=== PATIENT | female | born 1955 | race African-American/Black ===

== ENCOUNTER 2017-10-02 07:53 | Inpatient (IN) | payer OTHER, MEDICAID ==
[~2017-10-02] VITALS: Ht 157.5 cm; Wt 60.7 kg
[2017-10-02 08:30] LABS: Basophils # (auto) 0.1 uL; Basophils % (auto) 1.1 % (0.0-2.0); Eosinophils # (auto) 0.1 uL; Eosinophils % (auto) 0.7 % (0.0-7.0); Hematocrit 41.8 % (36.0-46.0); Hemoglobin 13.9 g/dL (12.2-16.2); Lymphocytes % (auto) 16.3 % (10.0-50.0); Mean Corpuscular Hemoglobin 29.8 pg (28.0-32.0); Mean Corpuscular Hgb Conc. 33.2 g/dL (32.0-36.0); Mean Corpuscular Volume 89.7 fL (80.0-100.0); Monocytes # (auto) 0.8 uL; Monocytes % (auto) 6.8 % (0.0-12.0); Neutrophils % (auto) 75.1 % (37.0-80.0); Platelet Count (auto) 340 10^3/uL (140-450); Red Blood Cells 4.66 10^6/uL (4.0-5.20); Red Cell Distribution Width 15.3 % (11.8-14.3)
[2017-10-02 08:35] LABS: Urine Bacteria FEW /hpf (None Seen); Urine Blood Negative /uL (Negative); Urine Specific Gravity 1.018 (1.001-1.035); Urine WBC 1 /hpf (0 - 5)
[2017-10-02 08:45] LABS: Albumin 3.9 g/dL (3.4-5.0); Anion Gap 9 (5-15); Blood Urea Nitrogen 13 mg/dL (7-18); Calcium 9.5 mg/dL (8.5-10.1); Carbon Dioxide 22 mmol/L (21-32); Chloride 107 mmol/L (98-107); Glucose 208 mg/dL (74-106); Potassium 4.5 mmol/L (3.5-5.1); Sodium 138 mmol/L (136-145)
[2017-10-02 08:47] LABS: Alanine Aminotransferase 25 U/L (13-56); Aspartate Aminotransferase 12 U/L (15-37); BUN/Creatinine Ratio 12.6; GFR African American 69 mL/min; GFR Non-African American 57 mL/min
[2017-10-02 08:51] LABS: Alkaline Phosphatase 65 U/L (45-117); Bilirubin, Total 0.7 mg/dL (0.2-1.0); Total Protein 7.5 g/dL (6.4-8.2)
[2017-10-02] MEDS ORDERED: SODIUM CHLORIDE 0.9% 1,000 ML IV ONE (08:55)
[2017-10-02] MEDS ORDERED: METOCLOPRAMIDE HCL 5MG/ml INJ 2ml VIAL IV ONE (09:00)
[2017-10-02] MEDS ORDERED: KETOROLAC TROMETH 30 MG/ML 1ML VIAL IV ONE (09:00)
[2017-10-02] MEDS ORDERED: GABA300C10 PO (09:07)
[2017-10-02] MEDS ORDERED: METF-370 PO (09:08)
[2017-10-02] MEDS ORDERED: CARV6.2551 PO (09:08)
[2017-10-02 10:24] LABS: Magnesium 1.6 mg/dL (1.6-2.6)
[2017-10-02] MEDS ORDERED: cefTRIAXone 1GM/10ml IVPUSH 10 ML IV ONE ×2 (11:30→11:45)
[2017-10-02] MEDS ORDERED: metroNIDAZOLE 500MG/100ML 100 ML IV ONE (11:30)
[2017-10-02] MEDS: SODIUM CHLORIDE 0.9% 1,000 ML IV SCH ×2 (11:40→21:40)
[2017-10-02] MEDS ORDERED: PROMETHAZINE HCL 25 MG/ML 1ML IV PRN (11:45)
[2017-10-02] MEDS ORDERED: DEXTROSE (50%) 50ML SYRG IV PRN (11:45)
[2017-10-02] MEDS ORDERED: ACETAMINOPHEN 500 MG TAB PO PRN (11:45)
[2017-10-02] MEDS ORDERED: NITROGLYCERIN 0.4 MG SL TAB SL PRN (11:45)
[2017-10-02] MEDS ORDERED: MORPHINE SULF INJ 2 MG/ML SYRINGE 1ML IV PRN ×2 (11:45)
[2017-10-02] MEDS ORDERED: LORazepam 0.5 MG TAB PO PRN (11:45)
[2017-10-02] MEDS ORDERED: HYDROcodone-ACET 5/325MG TAB PO PRN (11:45)
[2017-10-02] MEDS: CARVEDILOL 12.5 MG TAB PO SCH ×2 (12:31→21:33)
[2017-10-02] MEDS: ACCU-CHEK COMFORT CURVE STRIP VI SCH ×2 (16:28→21:20)
[2017-10-02 17:00] VITALS: BP 133/71
[2017-10-02] MEDS: InsuLIN REG 1unit/0.01ml Soln (100units/ml) SC SCH ×2 (17:00→21:20)
[2017-10-02] MEDS: metroNIDAZOLE 500MG/100ML 100 ML IV SCH ×2 (17:39→23:32)
[2017-10-02] MEDS: GABAPENTIN 300 MG CAP PO SCH (21:33)
[2017-10-02 22:00] VITALS: BP 141/68
[2017-10-02] MEDS: TEMAZEPAM 15 MG CAP PO PRN (22:58)
[2017-10-03] MEDS: SODIUM CHLORIDE 0.9% 1,000 ML IV SCH ×3 (03:40→22:00)
[2017-10-03 05:00] VITALS: BP 122/54
[2017-10-03] MEDS: metroNIDAZOLE 500MG/100ML 100 ML IV SCH ×4 (05:47→23:55)
[2017-10-03] MEDS: ACCU-CHEK COMFORT CURVE STRIP VI SCH ×4 (06:11→21:51)
[2017-10-03] MEDS: InsuLIN REG 1unit/0.01ml Soln (100units/ml) SC SCH ×4 (06:12→21:51)
[2017-10-03 07:50] LABS: Basophils # (auto) 0 uL; Basophils % (auto) 0.2 % (0.0-2.0); Eosinophils # (auto) 0.1 uL; Eosinophils % (auto) 2.1 % (0.0-7.0); Hematocrit 33.9 % (36.0-46.0); Hemoglobin 11.2 g/dL (12.2-16.2); Lymphocytes # (auto) 1.3 uL; Lymphocytes % (auto) 18.3 % (10.0-50.0); Mean Corpuscular Hemoglobin 29.5 pg (28.0-32.0); Mean Corpuscular Volume 89.4 fL (80.0-100.0); Monocytes # (auto) 0.5 uL; Monocytes % (auto) 7.5 % (0.0-12.0); Neutrophils % (auto) 71.9 % (37.0-80.0); Platelet Count (auto) 265 10^3/uL (140-450); Red Blood Cells 3.79 10^6/uL (4.0-5.20); Red Cell Distribution Width 14.7 % (11.8-14.3); White Blood Cell 6.9 10^3/uL (4.4-10.8)
[2017-10-03 09:00] VITALS: BP 118/66
[2017-10-03] MEDS: cefTRIAXone 1GM/10ml IVPUSH 10 ML IV SCH (09:53)
[2017-10-03] MEDS: PANTOPRAZOLE 40 MG TAB PO SCH (09:54)
[2017-10-03] MEDS: CARVEDILOL 12.5 MG TAB PO SCH ×2 (09:54→21:41)
[2017-10-03] MEDS: GABAPENTIN 300 MG CAP PO SCH ×2 (09:55→21:41)
[2017-10-03 13:00] VITALS: BP 125/64
[2017-10-03 17:00] VITALS: BP 149/78
[2017-10-03 22:00] VITALS: BP 144/76
[2017-10-04 05:00] VITALS: BP 138/75
[2017-10-04] MEDS: metroNIDAZOLE 500MG/100ML 100 ML IV SCH ×3 (05:28→17:37)
[2017-10-04] MEDS: InsuLIN REG 1unit/0.01ml Soln (100units/ml) SC SCH ×4 (06:15→22:06)
[2017-10-04] MEDS: ACCU-CHEK COMFORT CURVE STRIP VI SCH ×4 (06:15→22:05)
[2017-10-04 08:00] VITALS: BP 136/65
[2017-10-04 08:53] VITALS: BP 135/72
[2017-10-04] MEDS: cefTRIAXone 1GM/10ml IVPUSH 10 ML IV SCH (09:02)
[2017-10-04] MEDS: PANTOPRAZOLE 40 MG TAB PO SCH (09:02)
[2017-10-04] MEDS: CARVEDILOL 12.5 MG TAB PO SCH ×2 (09:02→22:01)
[2017-10-04] MEDS: GABAPENTIN 300 MG CAP PO SCH ×2 (09:02→22:01)
[2017-10-04] MEDS: SODIUM CHLORIDE 0.9% 1,000 ML IV SCH (12:18)
[2017-10-04 12:37] VITALS: BP 146/76
[2017-10-04 16:57] VITALS: BP 122/59
[2017-10-04 22:07] VITALS: BP 151/83
[2017-10-04] MEDS: TEMAZEPAM 15 MG CAP PO PRN (22:55)
[2017-10-05] MEDS: SODIUM CHLORIDE 0.9% 1,000 ML IV SCH (00:03)
[2017-10-05] MEDS: metroNIDAZOLE 500MG/100ML 100 ML IV SCH ×2 (00:03→05:28)
[2017-10-05 05:33] VITALS: BP 157/66
[2017-10-05] MEDS: ACCU-CHEK COMFORT CURVE STRIP VI SCH ×2 (06:24→11:30)
[2017-10-05] MEDS: InsuLIN REG 1unit/0.01ml Soln (100units/ml) SC SCH ×2 (06:25→11:30)
[2017-10-05 06:30] LABS: BUN/Creatinine Ratio 9.4; Calcium 8.9 mg/dL (8.5-10.1); Potassium 4.5 mmol/L (3.5-5.1)
[2017-10-05 08:00] VITALS: BP 136/60
[2017-10-05 09:00] VITALS: BP 142/74
[2017-10-05] MEDS: cefTRIAXone 1GM/10ml IVPUSH 10 ML IV SCH (09:14)
[2017-10-05] MEDS: PANTOPRAZOLE 40 MG TAB PO SCH (09:14)
[2017-10-05] MEDS: GABAPENTIN 300 MG CAP PO SCH (09:16)
[2017-10-05] MEDS: CARVEDILOL 12.5 MG TAB PO SCH (09:16)
[2017-10-05 11:35] VITALS: BP 142/74
== END 2017-10-05 12:00 | disposition home or self-care (01) | DRG 872 ==
LOC: ER 07:53 → TELE 07:54 → TELE-EAST 13:17
PROVIDERS: ADMIT Internal Medicine; ATTEND Internal Medicine
DX: A41.9 Sepsis, unspecified organism (principal); K57.32 Diverticulitis of large intestine without perforation or abscess without bleeding; E11.42 Type 2 diabetes mellitus with diabetic polyneuropathy; E78.5 Hyperlipidemia, unspecified; F17.210 Nicotine dependence, cigarettes, uncomplicated; I10 Essential (primary) hypertension; K21.9 Gastro-esophageal reflux disease without esophagitis; M06.9 Rheumatoid arthritis, unspecified; M19.90 Unspecified osteoarthritis, unspecified site; K57.90 Diverticulosis of intestine, part unspecified, without perforation or abscess without bleeding; E66.9 Obesity, unspecified; Z68.24 Body mass index [BMI] 24.0-24.9, adult; Z88.5 Allergy status to narcotic agent; Z87.442 Personal history of urinary calculi
CPT/HCPCS: 36415; 74176; 80048; 80053; 81001; 82962; 83036; 83690; 83735; 84484; 85025; 93005; 94761; 96361; 96365; 96375; J0696; J1815; J1885; J3490

== ENCOUNTER 2018-05-01 09:40 | Emergency (ER) | payer OTHER, MEDICAID ==
[~2018-05-01] VITALS: Ht 157.5 cm; Wt 81.6 kg
[~2018-05-01 09:40] MED LIST: CARV6.2551 PO; GABA300C10 PO; METF-370 PO
[2018-05-01 10:54] VITALS: BP 156/82
== END 2018-05-01 12:13 | disposition home or self-care (01) ==
LOC: ER 09:40
DX: J02.9 Acute pharyngitis, unspecified (principal); R05 Cough; J44.9 Chronic obstructive pulmonary disease, unspecified; E11.9 Type 2 diabetes mellitus without complications; K21.9 Gastro-esophageal reflux disease without esophagitis; E78.5 Hyperlipidemia, unspecified; I10 Essential (primary) hypertension; F17.210 Nicotine dependence, cigarettes, uncomplicated; Z90.49 Acquired absence of other specified parts of digestive tract

== ENCOUNTER 2018-05-21 13:53 | Emergency (ER) | payer OTHER, MEDICAID ==
[~2018-05-21] VITALS: Ht 157.5 cm; Wt 81.6 kg
[2018-05-21 14:02] VITALS: BP 149/67
[2018-05-21] MEDS ORDERED: KETOROLAC TROMETH 60MG/2ML VIAL IM ONE (14:45)
== END 2018-05-21 15:07 | disposition home or self-care (01) ==
LOC: ER 13:57
DX: S29.011A Strain of muscle and tendon of front wall of thorax, initial encounter (principal); M19.90 Unspecified osteoarthritis, unspecified site; J44.9 Chronic obstructive pulmonary disease, unspecified; E11.9 Type 2 diabetes mellitus without complications; K21.9 Gastro-esophageal reflux disease without esophagitis; E78.5 Hyperlipidemia, unspecified; I10 Essential (primary) hypertension; F17.210 Nicotine dependence, cigarettes, uncomplicated; Z88.5 Allergy status to narcotic agent; Z79.84 Long term (current) use of oral hypoglycemic drugs; Z79.899 Other long term (current) drug therapy; Z90.49 Acquired absence of other specified parts of digestive tract; W18.39XA Other fall on same level, initial encounter; Y93.89 Activity, other specified; Y99.8 Other external cause status; Y92.096 Garden or yard of other non-institutional residence as the place of occurrence of the external cause
CPT/HCPCS: 71101; 96372; 99283; J1885

== ENCOUNTER 2019-03-29 10:33 | Emergency (ER) | payer OTHER, MEDICAID ==
[~2019-03-29] VITALS: Ht 157.5 cm; Wt 78.5 kg
[2019-03-29 11:12] LABS: Basophils # (auto) 0 uL; Basophils % (auto) 0.3 % (0.0-2.0); Eosinophils # (auto) 0.1 uL; Eosinophils % (auto) 1.2 % (0.0-7.0); Hematocrit 39.4 % (36.0-46.0); Hemoglobin 12.9 g/dL (12.2-16.2); Lymphocytes # (auto) 1.6 uL; Lymphocytes % (auto) 18.2 % (10.0-50.0); Mean Corpuscular Hemoglobin 29.8 pg (28.0-32.0); Mean Corpuscular Hgb Conc. 32.8 g/dL (32.0-36.0); Mean Corpuscular Volume 90.9 fL (80.0-100.0); Monocytes # (auto) 0.7 uL; Monocytes % (auto) 7.6 % (0.0-12.0); Neutrophils # (auto) 6.5 uL; Neutrophils % (auto) 72.7 % (37.0-80.0); Platelet Count (auto) 288 10^3/uL (140-450); Red Blood Cells 4.33 10^6/uL (4.0-5.20); White Blood Cell 8.9 10^3/uL (4.4-10.8)
[2019-03-29 11:27] LABS: Albumin 3.9 g/dL (3.4-5.0); Potassium 4.5 mmol/L (3.5-5.1)
[2019-03-29 11:31] LABS: BUN/Creatinine Ratio 13.9; Bilirubin, Total 0.3 mg/dL (0.2-1.0); Total Protein 7.3 g/dL (6.4-8.2)
[2019-03-29 17:05] VITALS: BP 150/91
== END 2019-03-29 17:12 | disposition home or self-care (01) ==
LOC: ER 10:33
DX: N39.0 Urinary tract infection, site not specified (principal); J44.9 Chronic obstructive pulmonary disease, unspecified; E11.9 Type 2 diabetes mellitus without complications; K21.9 Gastro-esophageal reflux disease without esophagitis; E78.5 Hyperlipidemia, unspecified; I10 Essential (primary) hypertension; F17.210 Nicotine dependence, cigarettes, uncomplicated; Z90.49 Acquired absence of other specified parts of digestive tract; Z88.0 Allergy status to penicillin; Z88.6 Allergy status to analgesic agent
CPT/HCPCS: 36415; 80053; 81002; 85025; 93005

== ENCOUNTER 2019-08-22 09:43 | Emergency (ER) | payer OTHER, MEDICAID ==
[~2019-08-22] VITALS: Ht 157.5 cm; Wt 86.2 kg
[2019-08-22] MEDS ORDERED: SODIUM CHLORIDE 0.9% 1,000 ML IV ONE ×2 (09:52)
[2019-08-22 10:10] LABS: Basophils # (auto) 0 10 ^3/uL (0-0.2); Basophils % (auto) 0.5 % (0.0-2.0); Eosinophils # (auto) 0.4 10 ^3/uL (0-0.8); Eosinophils % (auto) 5.6 % (0.0-7.0); Hematocrit 39.7 % (36.0-46.0); Lymphocytes # (auto) 2.2 10 ^3/uL (0.4-5.4); Lymphocytes % (auto) 34.8 % (10.0-50.0); Mean Corpuscular Hemoglobin 29.3 pg (28.0-32.0); Mean Corpuscular Hgb Conc. 32.7 g/dL (32.0-36.0); Mean Corpuscular Volume 89.6 fL (80.0-100.0); Monocytes # (auto) 0.5 10 ^3/uL (0-1.3); Monocytes % (auto) 7.5 % (0.0-12.0); Neutrophils # (auto) 3.3 10 ^3/uL (1.6-8.6); Neutrophils % (auto) 51.6 % (37.0-80.0); Platelet Count (auto) 312 10^3/uL (140-450); Red Blood Cells 4.43 10^6/uL (4.0-5.20); Red Cell Distribution Width 14.5 % (11.8-14.3); White Blood Cell 6.4 10^3/uL (4.4-10.8)
[2019-08-22 10:27] LABS: Albumin 3.9 g/dL (3.4-5.0); Anion Gap 4 (5-15); Blood Urea Nitrogen 20 mg/dL (7-18); Carbon Dioxide 23 mmol/L (21-32); Chloride 113 mmol/L (98-107); Glucose 132 mg/dL (74-106); Potassium 4.5 mmol/L (3.5-5.1); Sodium 140 mmol/L (136-145)
[2019-08-22 10:33] LABS: Alanine Aminotransferase 31 U/L (13-56); Alkaline Phosphatase 51 U/L (45-117); Aspartate Aminotransferase 19 U/L (15-37); BUN/Creatinine Ratio 20.4; Bilirubin, Total 0.2 mg/dL (0.2-1.0); GFR African American 73 mL/min; GFR Non-African American 60 mL/min; Total Protein 7.2 g/dL (6.4-8.2)
[2019-08-22 10:36] VITALS: BP 169/58
[2019-08-22 10:45] LABS: Urine Bacteria FEW /hpf (None Seen); Urine Blood Negative /uL (Negative); Urine Specific Gravity 1.018 (1.001-1.035); Urine WBC <1 /hpf (0 - 5)
== END 2019-08-22 11:50 | disposition home or self-care (01) ==
LOC: ER 09:43
DX: M54.9 Dorsalgia, unspecified (principal); I10 Essential (primary) hypertension; E86.0 Dehydration; M19.90 Unspecified osteoarthritis, unspecified site; J44.9 Chronic obstructive pulmonary disease, unspecified; E11.9 Type 2 diabetes mellitus without complications; E78.5 Hyperlipidemia, unspecified; F17.210 Nicotine dependence, cigarettes, uncomplicated; Z87.442 Personal history of urinary calculi; Z90.49 Acquired absence of other specified parts of digestive tract; Z90.89 Acquired absence of other organs; Z79.899 Other long term (current) drug therapy; Z88.0 Allergy status to penicillin; Z88.5 Allergy status to narcotic agent
CPT/HCPCS: 36415; 71046; 80053; 81001; 83880; 84484; 85025

== ENCOUNTER → 2021-08-26 | Outpatient (CLI) | payer OTHER, MEDICAID ==
[~2021-08-26] VITALS: Ht 157.5 cm; Wt 86.2 kg
[~2021-08-26] MED LIST changes: +ADENOSINE 72 MG in GIVE UN-DILUTED 0 ML IV ONE; +ADENOSINE 90 MG/30 ML INJ IV ONE
== END | disposition home or self-care (01) ==
LOC: Rad HDHVI 08:12
PROVIDERS: ATTEND Internal Medicine Cardiovascular Disease
DX: I25.2 Old myocardial infarction (principal); I11.0 Hypertensive heart disease with heart failure; I50.33 Acute on chronic diastolic (congestive) heart failure; E11.9 Type 2 diabetes mellitus without complications; E78.5 Hyperlipidemia, unspecified
CPT/HCPCS: 78452; 93005; 96374; 96375; A9500; J0153

== ENCOUNTER → 2021-09-03 | Outpatient (CLI) | payer OTHER, MEDICAID ==
[~2021-09-03] MED LIST changes: -ADENOSINE 72 MG in GIVE UN-DILUTED 0 ML IV ONE; -ADENOSINE 90 MG/30 ML INJ IV ONE
== END | disposition home or self-care (01) ==
LOC: Rad HDHVI 10:40
PROVIDERS: ATTEND Internal Medicine Cardiovascular Disease
DX: I65.29 Occlusion and stenosis of unspecified carotid artery (principal); I65.22 Occlusion and stenosis of left carotid artery; I65.23 Occlusion and stenosis of bilateral carotid arteries
CPT/HCPCS: 93880

== ENCOUNTER → 2021-12-05 | Outpatient (CLI) | payer OTHER, MEDICAID ==
[~2021-12-05] MED LIST changes: +ASPI1TAB20 PO; +ATOR-47 PO; +BENA5TAB9 PO; +EMPA1TAB3 PO; +GABA100C9 PO; +HYDR25TA5 PO
[2021-12-05 09:05] VITALS: BP 168/79
[2021-12-05 09:27] VITALS: BP 181/79
[2021-12-05 11:43] LABS: Calcium 9.7 mg/dL (8.5-10.1)
[2021-12-05 11:50] LABS: Basophils # (auto) 0 10 ^3/uL (0-0.2); Basophils % (auto) 0.2 % (0.0-2.0); Eosinophils # (auto) 0.1 10 ^3/uL (0-0.8); Eosinophils % (auto) 1.3 % (0.0-7.0); Hematocrit 40.4 % (36.0-46.0); Hemoglobin 13.2 g/dL (12.2-16.2); Lymphocytes # (auto) 2.8 10 ^3/uL (0.4-5.4); Lymphocytes % (auto) 28.6 % (10.0-50.0); Mean Corpuscular Hemoglobin 29.6 pg (28.0-32.0); Mean Corpuscular Hgb Conc. 32.7 g/dL (32.0-36.0); Mean Corpuscular Volume 90.6 fL (80.0-100.0); Monocytes # (auto) 0.7 10 ^3/uL (0-1.3); Monocytes % (auto) 7.2 % (0.0-12.0); Neutrophils # (auto) 6.2 10 ^3/uL (1.6-8.6); Neutrophils % (auto) 62.7 % (37.0-80.0); Red Blood Cells 4.46 10^6/uL (4.0-5.20); Red Cell Distribution Width 14.7 % (11.8-14.3); White Blood Cell 9.9 10^3/uL (4.4-10.8)
[2021-12-05 12:07] LABS: INR 0.99 (0.9-1.15); Partial Thromboplastin Time 25.5 sec (24.6-33.4)
== END | disposition home or self-care (01) ==
LOC: Rad HDHVI 08:45
PROVIDERS: ATTEND Internal Medicine Cardiovascular Disease
DX: I50.43 Acute on chronic combined systolic (congestive) and diastolic (congestive) heart failure (principal)
CPT/HCPCS: 36415; 71046; 80048; 85025; 85610; 85730; 93005; G0463

== ENCOUNTER 2021-12-09 11:03 | Day surgery (SDC) | payer OTHER, MEDICAID ==
[~2021-12-09] VITALS: Ht 157.5 cm; Wt 86.2 kg
[2021-12-09] VITALS (8 sets, daily range): BP systolic 126–144; BP diastolic 57–76
[~2021-12-09 11:03] MED LIST changes: -GABA300C10 PO
[2021-12-09] MEDS ORDERED: IODIXANOL 320MG/ML 100ML BTL IV ONE (11:53)
[2021-12-09] MEDS ORDERED: IOHEXOL 350 MG/ML 100ML IJ ONE (11:53)
[2021-12-09] MEDS ORDERED: LIDOCAINE 2%HCL (LOCAL ANESTH.) INJ 10ml MDV ONE (11:53)
[2021-12-09] MEDS ORDERED: ANGIOMAX 250 MG VIAL IV ONE (12:06)
[2021-12-09] MEDS ORDERED: SODIUM CHL 0.9% 0 ML ONE (12:07)
[2021-12-09] MEDS ORDERED: fentaNYL CITRATE 100 MCG/2 ML VL ONE (12:07)
[2021-12-09] MEDS ORDERED: MIDAZOLAM HCL 2MG/2ML 2ml VIAL (1mg/ml) ONE (12:07)
== END 2021-12-09 14:55 | disposition home or self-care (01) ==
LOC: CATH 11:03
PROVIDERS: ATTEND Internal Medicine Cardiovascular Disease
DX: I42.0 Dilated cardiomyopathy (principal); I11.0 Hypertensive heart disease with heart failure; E78.5 Hyperlipidemia, unspecified; N28.9 Disorder of kidney and ureter, unspecified; I50.20 Unspecified systolic (congestive) heart failure; R06.09 Other forms of dyspnea; Z79.899 Other long term (current) drug therapy; Z20.822 Contact with and (suspected) exposure to COVID-19; Z98.890 Other specified postprocedural states; Z88.0 Allergy status to penicillin
CPT/HCPCS: 93458; C1760; C1894; J1644; J2001; J2250; J3010; J7030; Q9967; U0003; 99152

== ENCOUNTER 2022-01-17 00:52 | Inpatient (IN) | payer OTHER, MEDICAID ==
[~2022-01-17] VITALS: Ht 165.1 cm; Wt 180.0 kg
[2022-01-17 01:42] LABS: Basophils # (auto) 0.1 10 ^3/uL (0-0.2); Basophils % (auto) 0.6 % (0.0-2.0); Eosinophils # (auto) 0.3 10 ^3/uL (0-0.8); Eosinophils % (auto) 3.6 % (0.0-7.0); Hematocrit 39.3 % (36.0-46.0); Hemoglobin 12.8 g/dL (12.2-16.2); Lymphocytes # (auto) 1.9 10 ^3/uL (0.4-5.4); Lymphocytes % (auto) 21.8 % (10.0-50.0); Mean Corpuscular Hemoglobin 29.2 pg (28.0-32.0); Mean Corpuscular Hgb Conc. 32.6 g/dL (32.0-36.0); Mean Corpuscular Volume 89.4 fL (80.0-100.0); Monocytes # (auto) 0.6 10 ^3/uL (0-1.3); Monocytes % (auto) 7.1 % (0.0-12.0); Neutrophils # (auto) 5.9 10 ^3/uL (1.6-8.6); Neutrophils % (auto) 66.9 % (37.0-80.0); Nucleated Red Blood Cells % 0.1 %; Red Blood Cells 4.39 10^6/uL (4.0-5.20); Red Cell Distribution Width 14.2 % (11.8-14.3); White Blood Cell 8.9 10^3/uL (4.4-10.8)
[2022-01-17 01:45] LABS: Albumin 3.4 g/dL (3.4-5.0); BUN/Creatinine Ratio 25.8; Calcium 8.9 mg/dL (8.5-10.1); Potassium 4.1 mmol/L (3.5-5.1)
[2022-01-17 01:47] LABS: Bilirubin, Total 0.2 mg/dL (0.2-1.0); Total Protein 6.1 g/dL (6.4-8.2)
[2022-01-17 01:55] LABS: INR 0.98 (0.9-1.15); Partial Thromboplastin Time 27.2 sec (24.6-33.4)
[2022-01-17] MEDS ORDERED: MORPHINE SULFATE 4 MG/ML SYR/VIAL IV ONE (03:15)
[2022-01-17] MEDS ORDERED: ONDANSETRON HCL 4 MG/2 ML VIAL IV ONE (03:15)
[2022-01-17] MEDS ORDERED: ONDANSETRON HCL 4 MG/2 ML VIAL IV PRN (11:15)
[2022-01-17] MEDS ORDERED: ACETAMINOPHEN 325 MG TAB PO PRN (11:15)
[2022-01-17] MEDS ORDERED: DEXTROSE (50%) 50ML SYRG IV PRN (11:15)
[2022-01-17] MEDS ORDERED: DOCUSATE SOD 100 MG CAP PO PRN (11:15)
[2022-01-17] MEDS ORDERED: NITROGLYCERIN 0.4 MG SL TAB SL PRN (11:15)
[2022-01-17] MEDS ORDERED: HYDROcodone-ACET 5/325MG TAB PO PRN (11:15)
[2022-01-17] MEDS ORDERED: MORPHINE SULFATE INJ 2 MG/ml SYRG IV PRN (11:15)
[2022-01-17] MEDS ORDERED: SODIUM CHLORIDE 0.9% 1,000 ML IV ONE (11:30)
[2022-01-17] MEDS ORDERED: InsuLIN REG 1unit/0.01ml Soln (100units/ml) SC SCH ×2 (11:30→22:00)
[2022-01-17] MEDS ORDERED: ACCU-CHEK COMFORT CURVE STRIP VI SCH (11:30)
[2022-01-17 14:00] VITALS: BP 130/80
[2022-01-17] MEDS ORDERED: CARVEDILOL 3.125 MG TAB PO SCH (22:00)
[2022-01-17] MEDS ORDERED: HCTZ 25 MG TAB PO SCH (22:00)
[2022-01-17] MEDS ORDERED: GABAPENTIN 100 MG CAP PO SCH (22:00)
[2022-01-17] MEDS ORDERED: ATORVASTATIN 20 MG TAB PO SCH (22:00)
[2022-01-18] MEDS ORDERED: ENOXAPARIN SOD 40 MG/0.4 ML SYRINGE SC SCH (10:00)
[2022-01-18] MEDS ORDERED: LISINOPRIL 5 MG TAB PO SCH (10:00)
[2022-01-18] MEDS ORDERED: ASPirin-EC 81 mg tab PO SCH (10:00)
[2022-01-18] MEDS ORDERED: ATORVASTATIN 20 MG TAB PO SCH (10:00)
[2022-01-18] MEDS ORDERED: BENAZEPRIL HCL 2.5 MG PO SCH (10:00)
== END 2022-01-17 14:48 | disposition left against medical advice (07) | DRG 313 ==
LOC: EDUNIT# 00:52 → EDBD 00:52 → ER 00:52 → TELE 11:11
PROVIDERS: ADMIT Nurse Practitioner Family; ATTEND Nurse Practitioner Family
DX: R07.89 Other chest pain (principal); N18.6 End stage renal disease; I13.2 Hypertensive heart and chronic kidney disease with heart failure and with stage 5 chronic kidney disease, or end stage renal disease; Z53.29 Procedure and treatment not carried out because of patient's decision for other reasons; Z20.822 Contact with and (suspected) exposure to COVID-19; E11.22 Type 2 diabetes mellitus with diabetic chronic kidney disease; E11.65 Type 2 diabetes mellitus with hyperglycemia; E78.5 Hyperlipidemia, unspecified; E86.0 Dehydration; E87.8 Other disorders of electrolyte and fluid balance, not elsewhere classified; F17.210 Nicotine dependence, cigarettes, uncomplicated; I50.9 Heart failure, unspecified; J44.9 Chronic obstructive pulmonary disease, unspecified; E78.00 Pure hypercholesterolemia, unspecified; K21.9 Gastro-esophageal reflux disease without esophagitis; Z88.0 Allergy status to penicillin; Z88.5 Allergy status to narcotic agent; Z82.0 Family history of epilepsy and other diseases of the nervous system; Z82.49 Family history of ischemic heart disease and other diseases of the circulatory system
CPT/HCPCS: 36415; 71045; 80053; 83880; 84484; 85025; 85610; 85730; 87426; 93005; 96360; 96372; G0378; J1815

== ENCOUNTER → 2022-02-10 | Outpatient (CLI) | payer MEDICAID | END | disposition home or self-care (01) | LOC: Rad HDHVI 13:48 | PROVIDERS: ATTEND Internal Medicine Cardiovascular Disease | DX: I08.1 Rheumatic disorders of both mitral and tricuspid valves (principal); R07.89 Other chest pain; I10 Essential (primary) hypertension | CPT/HCPCS: 93306 ==

== ENCOUNTER → 2022-03-12 | Outpatient (CLI) | payer MEDICAID ==
[~2022-03-12] VITALS: Ht 157.5 cm; Wt 86.2 kg
== END | disposition home or self-care (01) ==
LOC: Rad HDHVI 09:36
PROVIDERS: ATTEND Internal Medicine Cardiovascular Disease
DX: I11.0 Hypertensive heart disease with heart failure (principal); I50.23 Acute on chronic systolic (congestive) heart failure; R06.02 Shortness of breath; I25.2 Old myocardial infarction; E11.9 Type 2 diabetes mellitus without complications; E78.00 Pure hypercholesterolemia, unspecified
CPT/HCPCS: 78472; 96374; 96375; A9505

== ENCOUNTER → 2022-06-15 | Outpatient (CLI) | payer OTHER ==
[~2022-06-15] MED LIST changes: +ALLO100T PO; +CARV12.544 PO; +HYDR12.56 PO; +LATA0.0020 EACHEYE; +OMEP-434 PO; +ROSU10TA16 PO; +TIM05OS EACHEYE
[2022-06-15 12:50] VITALS: BP 141/67
[2022-06-15 13:04] VITALS: BP 130/60
== END | disposition home or self-care (01) ==
LOC: Rad HDHVI 12:37
PROVIDERS: ATTEND Internal Medicine Cardiovascular Disease
DX: Z01.818 Encounter for other preprocedural examination (principal); R94.31 Abnormal electrocardiogram [ECG] [EKG]; I70.0 Atherosclerosis of aorta; I11.0 Hypertensive heart disease with heart failure; I50.43 Acute on chronic combined systolic (congestive) and diastolic (congestive) heart failure; I42.1 Obstructive hypertrophic cardiomyopathy
CPT/HCPCS: 71046; 93005; G0463

== ENCOUNTER 2022-06-18 08:49 | Inpatient (IN) | payer OTHER, MEDICAID ==
[2022-06-15 14:55] LABS: Hematocrit 40.4 % (36.0-46.0); Mean Corpuscular Hemoglobin 28.8 pg (28.0-32.0); Mean Corpuscular Hgb Conc. 32.1 g/dL (32.0-36.0); Mean Corpuscular Volume 89.8 fL (80.0-100.0); Red Cell Distribution Width 15.5 % (11.8-14.3); White Blood Cell 10.4 10^3/uL (4.4-10.8)
[2022-06-15 15:09] LABS: Band Neutrophils % (manual) 0; Basophils % (manual) 0 (0.0-2.0); Blast Cells 0; Eosinophils % (manual) 0 (0-7); Metamyelocytes % 0; Myelocytes % 0; Promyelocytes % 0; Reactive Lymphocytes 0
[2022-06-15 15:11] LABS: Partial Thromboplastin Time 23.7 sec (24.6-33.4)
[2022-06-15 15:22] LABS: Potassium 5.3 mmol/L (3.5-5.1)
[2022-06-15 15:27] LABS: BUN/Creatinine Ratio 28.4 (10.0-20.0); Calcium 9.8 mg/dL (8.5-10.1)
[2022-06-15 16:12] LABS: Lymphocytes % (manual) 9 (10.0-50.0); Monocytes % (manual) 9 (0-12)
[~2022-06-18] VITALS: Ht 157.5 cm; Wt 89.1 kg
[~2022-06-18 08:49] MED LIST changes: -ATOR-47 PO; -CARV6.2551 PO; -EMPA1TAB3 PO; -HYDR25TA5 PO
[2022-06-18] MEDS ORDERED: VANCOMYCIN 1GM/250ML 250 ML IV ONE (10:15)
[2022-06-18] MEDS ORDERED: MIDAZOLAM HCL 2MG/2ML 2ml VIAL (1mg/ml) ONE (11:39)
[2022-06-18] MEDS ORDERED: fentaNYL CITRATE 100 MCG/2 ML VL ONE (11:39)
[2022-06-18] MEDS ORDERED: VANCOMYCIN HCL 1000 MG VL ONE (11:39)
[2022-06-18] MEDS ORDERED: LIDOCAINE 2%HCL (LOCAL ANESTH.) INJ 20ML MDV ONE (11:40)
[2022-06-18] MEDS ORDERED: HYDROmorphone HCL 2 MG/ML VL/or syr ONE (12:21)
[2022-06-18] MEDS ORDERED: MORPHINE SULFATE INJ 2 MG/ml SYRG IV PRN (13:30)
[2022-06-18] MEDS ORDERED: ACETAMINOPHEN 325 MG TAB PO PRN (13:30)
[2022-06-18] MEDS ORDERED: NITROGLYCERIN 0.4 MG SL TAB SL PRN (13:30)
[2022-06-18 13:38] VITALS: BP 141/88
[2022-06-18 13:53] VITALS: BP 120/67
[2022-06-18] MEDS ORDERED: levoFLOXacin 500MG 100 ML IV ONE (14:00)
[2022-06-18 14:04] VITALS: BP 134/89
[2022-06-18 14:20] VITALS: BP 133/65
[2022-06-18] MEDS: HYDROcodone-ACET 5/325MG TAB PO PRN ×2 (15:32→22:23)
[2022-06-18 16:33] VITALS: BP 166/74
[2022-06-18 22:00] VITALS: BP 141/64
[2022-06-18] MEDS: VANCOMYCIN 1GM/250ML 250 ML IV SCH (22:21)
[2022-06-18] MEDS ORDERED: DEXTROSE (50%) 50ML SYRG IV PRN (23:45)
[2022-06-19 05:00] VITALS: BP 136/59
[2022-06-19] MEDS: ACCU-CHEK COMFORT CURVE STRIP VI SCH ×2 (06:16→12:40)
[2022-06-19] MEDS: InsuLIN REG 1unit/0.01ml Soln (100units/ml) SC SCH ×2 (06:20→12:32)
[2022-06-19 08:00] VITALS: BP 154/66
[2022-06-19] MEDS: HYDROcodone-ACET 5/325MG TAB PO PRN (09:57)
[2022-06-19] MEDS: VANCOMYCIN 1GM/250ML 250 ML IV SCH (10:17)
[2022-06-19 12:00] VITALS: BP 137/64
[2022-06-19 16:00] VITALS: BP 119/83
[2022-06-19 16:24] VITALS: BP 154/66
[2022-06-19] MEDS ORDERED: InsuLIN REG 1unit/0.01ml Soln (100units/ml) SC SCH (22:00)
== END 2022-06-19 17:10 | disposition home or self-care (01) | DRG 227 ==
LOC: CATH 08:49 → TELE 13:34 → TELE-EAST 14:48
PROVIDERS: ADMIT Internal Medicine Cardiovascular Disease; ATTEND Internal Medicine Cardiovascular Disease
PROC: 0JH609Z Insertion of Cardiac Resynchronization Defibrillator Pulse Generator into Chest Subcutaneous Tissue and Fascia, Open Approach (ICD-10-PCS; principal; 2022-06-18)
PROC: 02HK3KZ Insertion of Defibrillator Lead into Right Ventricle, Percutaneous Approach (ICD-10-PCS; 2022-06-18)
PROC: 02HL3KZ Insertion of Defibrillator Lead into Left Ventricle, Percutaneous Approach (ICD-10-PCS; 2022-06-18)
PROC: 02H63KZ Insertion of Defibrillator Lead into Right Atrium, Percutaneous Approach (ICD-10-PCS; 2022-06-18)
PROC: 4A0234Z Measurement of Cardiac Electrical Activity, Percutaneous Approach (ICD-10-PCS; 2022-06-18)
PROC: B5171ZZ Fluoroscopy of Left Subclavian Vein using Low Osmolar Contrast (ICD-10-PCS; 2022-06-18)
DX: I42.0 Dilated cardiomyopathy (principal); I50.22 Chronic systolic (congestive) heart failure; E11.40 Type 2 diabetes mellitus with diabetic neuropathy, unspecified; E66.9 Obesity, unspecified; I11.0 Hypertensive heart disease with heart failure; I45.9 Conduction disorder, unspecified; Z68.35 Body mass index [BMI] 35.0-35.9, adult
CPT/HCPCS: 33249; 36415; 71045; 75820; 80048; 82962; 85007; 85027; 85610; 85730; 93005; 93620; 99152; G0378; J1815; J1956; J2250

== ENCOUNTER 2022-06-21 00:03 | Inpatient (IN) | payer OTHER, MEDICAID ==
[~2022-06-21] VITALS: Ht 157.5 cm; Wt 75.0 kg
[2022-06-21 00:54] LABS: Basophils # (auto) 0 10 ^3/uL (0-0.2); Basophils % (auto) 0.3 % (0.0-2.0); Eosinophils # (auto) 0.2 10 ^3/uL (0-0.8); Eosinophils % (auto) 1.2 % (0.0-7.0); Hematocrit 36.9 % (36.0-46.0); Hemoglobin 11.9 g/dL (12.2-16.2); Lymphocytes # (auto) 2.3 10 ^3/uL (0.4-5.4); Lymphocytes % (auto) 17.2 % (10.0-50.0); Mean Corpuscular Hemoglobin 29.6 pg (28.0-32.0); Mean Corpuscular Hgb Conc. 32.3 g/dL (32.0-36.0); Mean Corpuscular Volume 91.4 fL (80.0-100.0); Monocytes % (auto) 7.3 % (0.0-12.0); Neutrophils # (auto) 9.9 10 ^3/uL (1.6-8.6); Nucleated Red Blood Cells % 0.1 %; Red Blood Cells 4.04 10^6/uL (4.0-5.20); Red Cell Distribution Width 15.7 % (11.8-14.3); White Blood Cell 13.3 10^3/uL (4.4-10.8)
[2022-06-21 01:12] LABS: Alanine Aminotransferase 24 U/L (13-56); Albumin 3.2 g/dL (3.4-5.0); Anion Gap 12 (5-15); Aspartate Aminotransferase 17 U/L (15-37); BUN/Creatinine Ratio 16.5 (10.0-20.0); Blood Urea Nitrogen 36 mg/dL (7-18); Calcium 8.7 mg/dL (8.5-10.1); Carbon Dioxide 18 mmol/L (21-32); Chloride 109 mmol/L (98-107); GFR African American 29 mL/min; GFR Non-African American 24 mL/min; Glucose 177 mg/dL (74-106); Magnesium 1.6 mg/dL (1.6-2.6); Potassium 4.7 mmol/L (3.5-5.1); Sodium 139 mmol/L (136-145)
[2022-06-21 01:15] LABS: Alkaline Phosphatase 77 U/L (45-117); Bilirubin, Total 0.2 mg/dL (0.2-1.0); Total Protein 5.9 g/dL (6.4-8.2)
[2022-06-21 02:19] LABS: INR 0.96 (0.9-1.15); Partial Thromboplastin Time 26.2 sec (24.6-33.4)
[2022-06-21] MEDS ORDERED: ASPirin 81 mg TAB PO ONE (02:30)
[2022-06-21] MEDS ORDERED: ENOXAPARIN SOD 80 MG/0.8ML SYRINGE SC ONE (03:30)
[2022-06-21] MEDS ORDERED: diphenhdrAMINE HCL 25 MG CAP PO ONE (04:15)
[2022-06-21] MEDS ORDERED: PIPERACILLIN-TAZOB 3.375GM 100 ML IV ONE (04:15)
[2022-06-21] MEDS ORDERED: ONDANSETRON HCL 4 MG/2 ML VIAL IV PRN (10:00)
[2022-06-21] MEDS ORDERED: DOCUSATE SOD 100 MG CAP PO PRN (10:00)
[2022-06-21] MEDS ORDERED: MORPHINE SULFATE INJ 2 MG/ml SYRG IV PRN (10:00)
[2022-06-21] MEDS ORDERED: ACETAMINOPHEN 325 MG TAB PO PRN (10:00)
[2022-06-21] MEDS ORDERED: NITROGLYCERIN 0.4 MG SL TAB SL PRN (10:00)
[2022-06-21 10:05] LABS: Urine Bacteria None Seen /hpf (None Seen)
[2022-06-21] MEDS ORDERED: DEXTROSE (50%) 50ML SYRG IV PRN (10:45)
[2022-06-21 10:56] LABS: Urine Specific Gravity 1.014 (1.001-1.035)
[2022-06-21 10:57] LABS: Urine Blood Trace /uL (Negative)
[2022-06-21 10:58] LABS: Urine WBC 25 /hpf (0 - 5)
[2022-06-21] MEDS: PANTOPRAZOLE 40 MG TAB PO SCH (10:59)
[2022-06-21] MEDS: GABAPENTIN 100 MG CAP PO SCH ×2 (10:59→23:17)
[2022-06-21] MEDS: CARVEDILOL 12.5 MG TAB PO SCH ×2 (10:59→23:17)
[2022-06-21] MEDS: ALLOPURINOL 100 MG TAB PO SCH ×2 (10:59→23:17)
[2022-06-21] MEDS: PIPERACILLIN-TAZOB 2.25GM 50 ML IV SCH ×3 (11:02→23:28)
[2022-06-21] MEDS: ASPirin-EC 81 mg tab PO SCH (11:07)
[2022-06-21] MEDS: ACCU-CHEK COMFORT CURVE STRIP VI SCH ×3 (11:31→23:18)
[2022-06-21] MEDS: InsuLIN REG 1unit/0.01ml Soln (100units/ml) SC SCH ×2 (11:32→17:29)
[2022-06-21] MEDS: SODIUM CHLOR 0.9% PF (SALINE LOCK) 10ML VIAL/SYR IV SCH ×2 (14:12→23:18)
[2022-06-21] MEDS: LATANOPROST 0.005 % OPTH(EYE) SOL 2.5ML EACHEYE SCH (17:53)
[2022-06-21] MEDS ORDERED: InsuLIN REG 1unit/0.01ml Soln (100units/ml) SC SCH (22:00)
[2022-06-21] MEDS: ATORVASTATIN 20 MG TAB PO SCH ×2 (23:28→23:35)
[2022-06-22] MEDS: SODIUM CHLOR 0.9% PF (SALINE LOCK) 10ML VIAL/SYR IV SCH ×2 (06:00→14:00)
[2022-06-22] MEDS: PANTOPRAZOLE 40 MG TAB PO SCH (06:44)
[2022-06-22] MEDS: ACCU-CHEK COMFORT CURVE STRIP VI SCH ×3 (06:44→17:00)
[2022-06-22] MEDS: InsuLIN REG 1unit/0.01ml Soln (100units/ml) SC SCH ×3 (06:44→17:00)
[2022-06-22] MEDS ORDERED: TIMOLOL MAL 0.5% OPTH(EYE) SOL 5ML EACHEYE SCH (07:00)
[2022-06-22 09:45] VITALS: BP_SYST 126; BP_SYST 130; BP_DIAS 55; BP_DIAS 71
[2022-06-22] MEDS ORDERED: ENOXAPARIN SOD 80 MG/0.8ML SYRINGE SC SCH (10:00)
[2022-06-22] MEDS ORDERED: SITA100T7 PO (10:08)
[2022-06-22] MEDS ORDERED: FER325T PO (10:08)
[2022-06-22] MEDS ORDERED: CHOLTAB12 PO (10:09)
[2022-06-22 12:00] VITALS: BP 130/71
[2022-06-22] MEDS: PIPERACILLIN-TAZOB 2.25GM 50 ML IV SCH ×2 (12:06→18:00)
[2022-06-22] MEDS: GABAPENTIN 100 MG CAP PO SCH (14:25)
[2022-06-22] MEDS: CARVEDILOL 12.5 MG TAB PO SCH (14:25)
[2022-06-22] MEDS: ASPirin-EC 81 mg tab PO SCH (14:26)
[2022-06-22] MEDS: ALLOPURINOL 100 MG TAB PO SCH (14:27)
[2022-06-22 15:52] LABS: Hepatitis C Antibody Negative (Negative)
[2022-06-22 16:00] VITALS: BP 126/70
[2022-06-22] MEDS: LATANOPROST 0.005 % OPTH(EYE) SOL 2.5ML EACHEYE SCH (18:00)
[2022-06-22 18:32] VITALS: BP 130/71
== END 2022-06-22 18:30 | disposition home or self-care (01) | DRG 281 ==
LOC: ER 00:03 → EDBD 00:03 → TELE 10:07 → TELE-EAST 06-22 08:54
PROVIDERS: ADMIT Internal Medicine; ATTEND Nurse Practitioner Acute Care
DX: T82.847A Pain due to cardiac prosthetic devices, implants and grafts, initial encounter (principal); I21.4 Non-ST elevation (NSTEMI) myocardial infarction; I13.0 Hypertensive heart and chronic kidney disease with heart failure and stage 1 through stage 4 chronic kidney disease, or unspecified chronic kidney disease; N17.9 Acute kidney failure, unspecified; I50.22 Chronic systolic (congestive) heart failure; I42.0 Dilated cardiomyopathy; J44.0 Chronic obstructive pulmonary disease with (acute) lower respiratory infection; N39.0 Urinary tract infection, site not specified; E11.22 Type 2 diabetes mellitus with diabetic chronic kidney disease; N18.9 Chronic kidney disease, unspecified; E11.40 Type 2 diabetes mellitus with diabetic neuropathy, unspecified; E11.65 Type 2 diabetes mellitus with hyperglycemia; E66.9 Obesity, unspecified; E78.00 Pure hypercholesterolemia, unspecified; M19.90 Unspecified osteoarthritis, unspecified site; K21.9 Gastro-esophageal reflux disease without esophagitis; F17.210 Nicotine dependence, cigarettes, uncomplicated; Z90.49 Acquired absence of other specified parts of digestive tract; Z82.0 Family history of epilepsy and other diseases of the nervous system; Z82.49 Family history of ischemic heart disease and other diseases of the circulatory system; Z88.0 Allergy status to penicillin; Z95.810 Presence of automatic (implantable) cardiac defibrillator; Z88.5 Allergy status to narcotic agent; Z68.30 Body mass index [BMI] 30.0-30.9, adult; Y83.1 Surgical operation with implant of artificial internal device as the cause of abnormal reaction of the patient, or of later complication, without mention of misadventure at the time of the procedure
CPT/HCPCS: 36415; 71045; 78582; 80053; 81001; 82962; 83735; 83880; 84484; 85025; 85379; 85610; 85730; 86803; 87086; 87088; 87186; 87340; 93005; 96365; 96372; G0378; J1815; J2543

== ENCOUNTER → 2022-07-14 | Outpatient (CLI) | payer OTHER ==
[~2022-07-14] MED LIST changes: +CHOLTAB12 PO; +FER325T PO; +GABA-1308 PO; -GABA100C9 PO; -HYDR12.56 PO; +HYDR12.59 PO; +SITA100T7 PO
== END | disposition home or self-care (01) ==
LOC: Rad HDHVI 08:50
PROVIDERS: ATTEND Internal Medicine Cardiovascular Disease
DX: I34.0 Nonrheumatic mitral (valve) insufficiency (principal); I10 Essential (primary) hypertension
CPT/HCPCS: 93306

== ENCOUNTER → 2022-09-29 | Outpatient (CLI) | payer MEDICAID, OTHER | END | disposition home or self-care (01) | LOC: Rad HDHVI 10:41 | PROVIDERS: ATTEND Internal Medicine Cardiovascular Disease | DX: I34.0 Nonrheumatic mitral (valve) insufficiency (principal); I11.9 Hypertensive heart disease without heart failure; E78.5 Hyperlipidemia, unspecified | CPT/HCPCS: 93306 ==

== ENCOUNTER 2023-09-28 08:37 | Emergency (ER) | payer OTHER, MEDICAID ==
[~2023-09-28] VITALS: Ht 157.5 cm; Wt 85.2 kg
[2023-09-28] MEDS ORDERED: METH4PAK PO (10:27)
[2023-09-28] MEDS ORDERED: MELO7.5T7 PO (10:27)
[2023-09-28 11:00] VITALS: BP 150/55; PULSE 80; RESP 16; TEMP 98; O2SAT 97
== END 2023-09-28 11:30 | disposition home or self-care (01) ==
LOC: ER 08:37
DX: M54.16 Radiculopathy, lumbar region (principal); M79.661 Pain in right lower leg; M54.41 Lumbago with sciatica, right side; E11.22 Type 2 diabetes mellitus with diabetic chronic kidney disease; I12.9 Hypertensive chronic kidney disease with stage 1 through stage 4 chronic kidney disease, or unspecified chronic kidney disease; N18.31 Chronic kidney disease, stage 3a; J44.9 Chronic obstructive pulmonary disease, unspecified; K21.9 Gastro-esophageal reflux disease without esophagitis; E78.5 Hyperlipidemia, unspecified; F17.210 Nicotine dependence, cigarettes, uncomplicated; I25.2 Old myocardial infarction; Z90.49 Acquired absence of other specified parts of digestive tract
CPT/HCPCS: 73502

== ENCOUNTER → 2023-12-24 | Outpatient (CLI) | payer MEDICAID ==
[~2023-12-24] MED LIST changes: +MELO7.5T7 PO; +METH4PAK PO
== END | disposition home or self-care (01) ==
LOC: Rad HDHVI 09:43
PROVIDERS: ATTEND Internal Medicine Cardiovascular Disease
DX: I10 Essential (primary) hypertension (principal); E78.5 Hyperlipidemia, unspecified
CPT/HCPCS: 93306

== ENCOUNTER 2024-09-25 09:49 | Outpatient (CLI) | payer OTHER, MEDICAID | END 2024-09-25 17:00 | disposition home or self-care (01) | LOC: Rad HDHVI 09:49 | PROVIDERS: ATTEND Internal Medicine Cardiovascular Disease | DX: I37.1 Nonrheumatic pulmonary valve insufficiency (principal); I11.0 Hypertensive heart disease with heart failure; I50.23 Acute on chronic systolic (congestive) heart failure | CPT/HCPCS: 93306 ==